=== PATIENT | male | born 1950 | race African-American/Black ===

== ENCOUNTER 2017-01-20 08:07 | Outpatient (CLI) | payer MEDICARE, MEDICAID ==
[2017-01-20 12:51] LABS: Anion Gap 15 mmol/L (10-20); BUN (Urea Nitrogen) 12 mg/dL (8.4-25.7); Calc. Creatinine Clearance 0 mL/min (70-130); Calcium 8.6 mg/dL (7.8-10.44); Carbon Dioxide 24 mmol/L (23-31); Chloride 108 mmol/L (98-107); Estimated GFR-MDRD 85; Glucose 93 mg/dL (80-115); Potassium 3.7 mmol/L (3.5-5.1); Sodium 143 mmol/L (136-145)
== END 2017-01-20 08:08 ==
LOC: NAVSJIPCSP 08:07
PROVIDERS: ATTEND Internal Medicine
DX: I11.9 Hypertensive heart disease without heart failure (principal); N28.9 Disorder of kidney and ureter, unspecified
CPT/HCPCS: 36415; 80048

== ENCOUNTER 2017-05-04 09:34 | Outpatient (CLI) | payer MEDICARE, MEDICAID ==
[2017-05-04 12:30] LABS: #Eosinphils 0.2 thou/uL (0.0-0.7); #Lymphocytes 2.3 thou/uL (1.20-3.40); #Monocytes 0.4 thou/uL (0.11-0.59); #Neutrophils 2.6 thou/uL (1.40-6.50); %Basophils 0.8 % (0.0-1.0); %Eosinophils 3.2 % (0.0-10.0); %Lymphocytes 42.2 % (21.0-51.0); %Monocytes 6.5 % (0.0-10.0); %Neutrophils 47.3 % (42.0-75.0); Hemoglobin 13.1 g/dL (14.0-18.0); Mean Corpuscular HGB CONC 31.9 g/dL (32.0-36.0); Mean Corpuscular Hemoglobin 29.9 pg (27.0-31.0); Mean Corpuscular Volume 93.8 fl (80.0-94.0); Mean Platelet Volume 5.2 fL (7.4-10.4); Platelet Count 333 thou/uL (130-400); RBC Distribution Width 14.1 % (11.5-14.5); Red Blood Cell (RBC) Count 4.39 mill/uL (4.70-6.10); White Blood Cell (WBC) Count 5.5 thou/uL (4.8-10.8)
[2017-05-04 12:50] LABS: ALT (SGPT) 12 U/L (8-55); AST (SGOT) 17 U/L (5-34); Albumin 4.1 g/dL (3.4-4.8); Alkaline Phosphatase 70 U/L (40-150); Anion Gap 15 mmol/L (10-20); BUN (Urea Nitrogen) 10 mg/dL (8.4-25.7); Bilirubin, Total 0.3 mg/dL (0.2-1.2); Calc. Creatinine Clearance 0 mL/min (70-130); Calcium 9.1 mg/dL (7.8-10.44); Carbon Dioxide 22 mmol/L (23-31); Cardiac Risk 3.1 (Less than 4.5); Chloride 105 mmol/L (98-107); Cholesterol 178 mg/dl (< 200 Desired); Estimated GFR-MDRD 88; Globulin 2.8 g/dL (2.4-3.5); Glucose 101 mg/dL (80-115); HDL Cholesterol 58 mg/dL (>60 Neg Risk); LDL Cholesterol, Calculated 108 mg/dL; Protein, Total 6.9 g/dL (5.8-8.1); Sodium 138 mmol/L (136-145); Triglycerides 60 mg/dL (Less than 150)
[2017-05-04 13:35] LABS: Bilirubin Negative (Negative); Blood, Urine Moderate (Negative); Clarity Clear (Clear); Glucose, Urine (Dipstick) Negative (Negative); Leukocyte Negative (Negative); Nitrite Negative (Negative); Protein, Urine (Dipstick) Trace mg/dL (Neg-Trace); Specific Gravity, Urine 1.015 (1.005-1.030); Urobilinogen 0.2 mg/dL (0.2-1.0)
[2017-05-04 13:52] LABS: Bacteria/HPF Rare-Few HPF (None Seen); Sperm/HPF 1+ HPF (None Seen); Squamous Epithelial 0-3 HPF (0-3); WBC/HPF 0-3 HPF (0-3)
== END 2017-05-04 09:35 | disposition home or self-care (01) ==
LOC: NAVSJIPCSP 09:34
PROVIDERS: ATTEND Internal Medicine
DX: Z12.5 Encounter for screening for malignant neoplasm of prostate (principal); I11.9 Hypertensive heart disease without heart failure; G62.9 Polyneuropathy, unspecified; Z79.899 Other long term (current) drug therapy
CPT/HCPCS: 36415; 80053; 80061; 81003; 81015; 85025; G0103

== ENCOUNTER 2017-06-15 10:22 | Outpatient (CLI) | payer MEDICARE, MEDICAID ==
--- NOTE | 2017-06-15 13:05 | RAD ---
LEFT KNEE FOUR VIEWS: History: Knee pain. FINDINGS: Joint spaces are preserved. No fracture identified. There is suggestion of small joint effusion in t he suprapatellar region. IMPRESSION: No osseous abnormality seen. No significant degenerative change. Question small joint effusion. POS: [facility]
--- NOTE | 2017-06-15 13:27 | RAD ---
RIGHT KNEE FOUR VIEWS: HISTORY: Generalized bilateral knee pain. COMPARISON: None. FINDINGS: No acute fracture or malalignment. Small joint effusion. Incidental note is made of a flabella. No significant joint space narrowing. Small osteophyte form ation of the medial compartment. IMPRESSION: Mild medial compartment osteoarthritic disease. POS: [facility]
== END 2017-06-15 10:23 | disposition home or self-care (01) ==
LOC: NAV RAD 10:22
PROVIDERS: ATTEND Internal Medicine
DX: M25.561 Pain in right knee (principal); M25.562 Pain in left knee; M17.0 Bilateral primary osteoarthritis of knee

== ENCOUNTER 2017-08-15 08:39 | Outpatient (CLI) | payer MEDICARE, MEDICAID ==
--- NOTE | 2017-08-15 19:31 | ULT ---
RENAL ULTRASOUND: Date: 08-15-17 Provided Clinical History: Microscopic hematuria. FINDINGS: Right kidney measures about 10.8 x 4.8 x 4.9 cm and demonstrates no evidence for hydronephrosis, sono graphically apparent calculus, or solid mass. Simple appearing cyst is seen measuring about 1.2 cm. Left kidney measures about 10.9 x 9.6 x 4.9 cm and demonstrates no evidence for hydronephrosis, sonog raphically apparent calculus or mass. Urinary bladder appears sonographically unremarkable. Bladder volume pre void is 24 cc. There is 3 cc post void residual. IMPRESSION: No evidence for hydronephrosis. POS: [facility]
== END 2017-08-15 08:40 | disposition home or self-care (01) ==
LOC: NAV ULT 08:39
PROVIDERS: ATTEND Internal Medicine
DX: R31.21 Asymptomatic microscopic hematuria (principal)
CPT/HCPCS: 76770

== ENCOUNTER 2018-10-11 16:11 | Emergency (ER) | payer MEDICARE, MEDICAID ==
[2018-10-11] MEDS ORDERED: Acetaminophen 500 MG TAB ONE (16:34)
== END 2018-10-11 16:40 ==
LOC: NAV ERS 16:11
DX: S23.41XA Sprain of ribs, initial encounter (principal); I10 Essential (primary) hypertension; J45.909 Unspecified asthma, uncomplicated; F17.210 Nicotine dependence, cigarettes, uncomplicated; Z79.899 Other long term (current) drug therapy; V49.9XXA Car occupant (driver) (passenger) injured in unspecified traffic accident, initial encounter
CPT/HCPCS: 99283

== ENCOUNTER 2020-05-28 11:50 | Outpatient (CLI) | payer MEDICARE, MEDICAID ==
[2020-05-29 11:32] LABS: Bacteria/HPF None Seen HPF (None Seen); Bilirubin Negative (Negative); Blood, Urine Negative (Negative); Clarity Clear (Clear); Glucose, Urine (Dipstick) Normal (Negative); Ketone, Urine Negative (Negative); Leukocyte Negative Leu/uL (Negative); Nitrite Negative (Negative); Protein, Urine (Dipstick) Negative (Neg-Trace); RBC/HPF None Seen HPF (0-3); Specific Gravity, Urine 1.001 (1.002-1.036); Squamous Epithelial None Seen HPF (0-3); Urobilinogen Normal mg/dL (Less than 2); WBC/HPF None Seen HPF (0-3); pH, Urine 7.5 (5.0-9.0)
[2020-05-29 17:52] LABS: AST (SGOT) 19 U/L (5-34); Bilirubin, Total 0.3 mg/dL (0.2-1.2); Calcium 9.1 mg/dL (7.8-10.44); Chloride 102 mmol/L (98-107); Potassium 4.3 mmol/L (3.5-5.1); Sodium 138 mmol/L (136-145)
[2020-05-29 17:57] LABS: ALT (SGPT) 15 U/L (8-55); Albumin 3.7 g/dL (3.4-4.8); Alkaline Phosphatase 88 U/L (40-110); Anion Gap 19 mmol/L (10-20); BUN (Urea Nitrogen) 11 mg/dL (8.4-25.7); Bilirubin, Direct 0.1 mg/dL (0.1-0.3); Calc. Creatinine Clearance 0 mL/min (70-130); Carbon Dioxide 23 mmol/L (23-31); Estimated GFR-MDRD Greater than 90; Glucose 68 mg/dL (80-115); Protein, Total 6.8 g/dL (5.8-8.1)
== END 2020-05-28 11:51 | disposition home or self-care (01) ==
LOC: NAV LAB 11:50
PROVIDERS: ATTEND Nurse Practitioner Adult Health
DX: E72.20 Disorder of urea cycle metabolism, unspecified (principal); R31.9 Hematuria, unspecified
CPT/HCPCS: 36415; 80048; 80076; 81001; 82140

== ENCOUNTER 2020-07-07 12:28 | Emergency (ER) | payer MEDICARE, MEDICAID | END 2020-07-07 13:08 | disposition home or self-care (01) | LOC: NAV ERS 12:28 | DX: Z00.00 Encounter for general adult medical examination without abnormal findings (principal); I10 Essential (primary) hypertension; J45.909 Unspecified asthma, uncomplicated; Z87.891 Personal history of nicotine dependence; Z79.899 Other long term (current) drug therapy | CPT/HCPCS: 99281 ==

== ENCOUNTER 2021-03-10 12:19 | Outpatient (CLI) | payer MEDICARE, MEDICAID | END 2021-03-10 12:20 | disposition home or self-care (01) | LOC: NAV RAD 12:19 | PROVIDERS: ATTEND Internal Medicine | DX: M25.511 Pain in right shoulder (principal); M19.011 Primary osteoarthritis, right shoulder ==